=== PATIENT | male | born 1960 | race Two or more races ===

== ENCOUNTER 2020-10-18 21:38 | Emergency (ER) | payer SELFPAY ==
[~2020-10-18] VITALS: Ht 172.7 cm; Wt 70.3 kg
[2020-10-18 21:38] VITALS: BP 132/79
--- NOTE | 2020-10-18 21:38 | NUR ---
PT TO WAITING ROOM. NO BEDS AVAILABLE.
--- NOTE | 2020-10-18 22:45 | NUR ---
PT CALLED TO ROOM. NO ANSWER. PT LEFT WITHOUT BEING SEEN.
== END 2020-10-19 05:47 | disposition left against medical advice (07) ==
LOC: ER 21:40
DX: Z53.21 Procedure and treatment not carried out due to patient leaving prior to being seen by health care provider (principal)